=== PATIENT | female | born 1990 | race Caucasian/White ===

== ENCOUNTER 2019-05-25 18:20 | Emergency (ER) | payer OTHER ==
[~2019-05-25] VITALS: Ht 165.1 cm; Wt 88.6 kg
[~2019-05-25 18:20] MED LIST: ALBU8HFA4 IH; METF-960 PO; OMEP10 PO; RISP2 PO
[2019-05-25 20:00] LABS: BASOPHILS % (AUTO) 0.4 % (0.0-2.0); EOSINOPHILS % (AUTO) 0.2 % (1.0-6.0); HEMATOCRIT 43.6 % (36-46); HEMOGLOBIN 15.2 g/dL (12.0-16.0); LYMPHOCYTES # (AUTO) 1.9 K/uL (1.0-4.8); LYMPHOCYTES % (AUTO) 20.6 % (22.0-44.0); MEAN CORPUSCULAR HEMOGLOBIN 30.2 pg (26.0-34.0); MEAN CORPUSCULAR HGB CONC 34.8 G/dL (31.0-37.0); MEAN CORPUSCULAR VOLUME 87 fL (80-100); MONOCYTES # (AUTO) 0.6 K/uL (0.1-1.0); MONOCYTES % (AUTO) 6.3 % (2.0-9.0); NEUTROPHILS # (AUTO) 6.6 K/uL (1.8-7.7); NEUTROPHILS % (AUTO) 72.5 % (40.0-70.0); PLATELET COUNT (AUTO) 331 K/uL (150-450); RED BLOOD CELL COUNT(AUTO) 5.03 MIL/uL (4.00-5.20); RED CELL DISTRIBUTION WIDTH 12.7 % (11.5-14.5)
[2019-05-25 20:12] LABS: ANION GAP 9 mmol/L (8-16); CALCIUM, TOTAL 9.5 mg/dL (8.8-10.5); CARBON DIOXIDE 29 mmol/L (22-29); CHLORIDE 101 mmol/L (98-107); CREATININE 0.82 mg/dL (0.60-1.30); GLOMERULAR FILTR. RATE CALC > 60 mL/min (>60); GLUCOSE,RANDOM 159 mg/dL (70-110); POTASSIUM 3.7 mmol/L (3.5-5.1); SODIUM SERUM 139 mmol/L (136-145); UREA NITROGEN, BLOOD 9 mg/dL (7-18)
[2019-05-25] MEDS ORDERED: ONDANSETRON HCL 4 MG TABLET PO ONE (20:15)
[2019-05-25] MEDS ORDERED: MECLIZINE HCL 25 MG TABLET PO ONE (20:15)
[2019-05-25 20:20] VITALS: BP 130/82
[2019-05-25 20:27] LABS: ALANINE AMINOTRANSFERASE 64 U/L (12-78); ALBUMIN 3.9 g/dL (3.4-5.0); ALKALINE PHOSPHATASE 73 U/L (46-116); ASPARTATE AMINOTRANSFERASE 28 U/L (15-37); BILIRUBIN,TOTAL 0.7 mg/dL (0.1-1.0); HCG,QUANTITATIVE < 1 mIU/mL (0-6); TOTAL PROTEIN, SERUM 8.2 g/dL (6.4-8.2)
== END 2019-05-25 21:39 | disposition home or self-care (01) ==
LOC: EMS 18:20
DX: F20.9 Schizophrenia, unspecified (principal); H81.13 Benign paroxysmal vertigo, bilateral; E11.9 Type 2 diabetes mellitus without complications; I10 Essential (primary) hypertension; J45.909 Unspecified asthma, uncomplicated; F11.90 Opioid use, unspecified, uncomplicated; F31.9 Bipolar disorder, unspecified; F90.9 Attention-deficit hyperactivity disorder, unspecified type; Z79.899 Other long term (current) drug therapy; Z79.84 Long term (current) use of oral hypoglycemic drugs; Z91.040 Latex allergy status; Z88.8 Allergy status to other drugs, medicaments and biological substances; Z91.013 Allergy to seafood
CPT/HCPCS: 36415; 80053; 84702; 85025; 99284; G0480; Q0162

== ENCOUNTER 2021-03-17 06:47 | Emergency (ER) | payer MEDICAID, OTHER ==
[~2021-03-17] VITALS: Ht 152.4 cm; Wt 104.0 kg
[~2021-03-17 06:47] MED LIST changes: +METF-1211 PO; -METF-960 PO; -RISP2 PO; +RISP2TAB45 PO
[2021-03-17] MEDS ORDERED: HYDR50CA9 PO (07:49)
[2021-03-17] MEDS ORDERED: LEVO25TA9 PO (07:49)
[2021-03-17 08:11] LABS: BASOPHILS % (AUTO) 0.4 % (0.0-2.0); EOSINOPHILS % (AUTO) 1.3 % (1.0-6.0); HEMATOCRIT 39.9 % (36-46); HEMOGLOBIN 13.9 g/dL (12.0-16.0); LYMPHOCYTES # (AUTO) 2.4 K/uL (1.0-4.8); LYMPHOCYTES % (AUTO) 44.9 % (22.0-44.0); MEAN CORPUSCULAR HEMOGLOBIN 29.9 pg (26.0-34.0); MEAN CORPUSCULAR HGB CONC 34.9 G/dL (31.0-37.0); MEAN CORPUSCULAR VOLUME 86 fL (80-100); MONOCYTES # (AUTO) 0.4 K/uL (0.1-1.0); MONOCYTES % (AUTO) 8.3 % (2.0-9.0); NEUTROPHILS # (AUTO) 2.4 K/uL (1.8-7.7); NEUTROPHILS % (AUTO) 45.1 % (40.0-70.0); PLATELET COUNT (AUTO) 314 K/uL (150-450); RED BLOOD CELL COUNT(AUTO) 4.66 MIL/uL (4.00-5.20); RED CELL DISTRIBUTION WIDTH 13.1 % (11.5-14.5)
[2021-03-17 08:20] LABS: ANION GAP 6 mmol/L (8-16); CALCIUM, TOTAL 9.2 mg/dL (8.8-10.5); CARBON DIOXIDE 31 mmol/L (22-29); CHLORIDE 105 mmol/L (98-107); CREATININE 0.82 mg/dL (0.60-1.30); GLOMERULAR FILTR. RATE CALC > 60 mL/min (>60); GLUCOSE,RANDOM 153 mg/dL (70-110); POTASSIUM 4.6 mmol/L (3.5-5.1); SODIUM SERUM 142 mmol/L (136-145); UREA NITROGEN, BLOOD 14 mg/dL (7-18)
[2021-03-17 08:45] VITALS: BP 148/89
[2021-03-17 09:18] LABS: GLUCOMETER DEV NAME(LOC) ERT.5; GLUCOSE,POINT OF CARE 140 MG/DL (70-110)
== END 2021-03-17 10:31 | disposition home or self-care (01) ==
LOC: EMS 06:53
DX: G62.9 Polyneuropathy, unspecified (principal); R20.0 Anesthesia of skin; J45.909 Unspecified asthma, uncomplicated; F31.9 Bipolar disorder, unspecified; E11.9 Type 2 diabetes mellitus without complications; I10 Essential (primary) hypertension; F20.9 Schizophrenia, unspecified; F11.90 Opioid use, unspecified, uncomplicated; Z91.040 Latex allergy status; Z91.013 Allergy to seafood; Z91.018 Allergy to other foods; Z79.84 Long term (current) use of oral hypoglycemic drugs
CPT/HCPCS: 70450; 80048; 82962; 83735; 85025; 99284

== ENCOUNTER 2021-04-01 08:37 | Inpatient (IN) | payer MEDICAID ==
[~2021-04-01] VITALS: Ht 165.1 cm; Wt 113.6 kg
[~2021-04-01 08:37] MED LIST changes: +HYDR50CA9 PO; +LEVO25TA9 PO
[2021-04-01 09:21] LABS: BASOPHILS % (AUTO) 0.9 % (0.0-2.0); EOSINOPHILS % (AUTO) 0.2 % (1.0-6.0); HEMATOCRIT 37.8 % (36-46); HEMOGLOBIN 13.3 g/dL (12.0-16.0); LYMPHOCYTES # (AUTO) 1.9 K/uL (1.0-4.8); LYMPHOCYTES % (AUTO) 21.4 % (22.0-44.0); MEAN CORPUSCULAR HEMOGLOBIN 29.9 pg (26.0-34.0); MEAN CORPUSCULAR HGB CONC 35.2 G/dL (31.0-37.0); MEAN CORPUSCULAR VOLUME 85 fL (80-100); MONOCYTES # (AUTO) 0.8 K/uL (0.1-1.0); MONOCYTES % (AUTO) 8.5 % (2.0-9.0); NEUTROPHILS # (AUTO) 6.1 K/uL (1.8-7.7); PLATELET COUNT (AUTO) 415 K/uL (150-450); RED BLOOD CELL COUNT(AUTO) 4.45 MIL/uL (4.00-5.20); RED CELL DISTRIBUTION WIDTH 12.6 % (11.5-14.5)
[2021-04-01 09:30] LABS: ANION GAP 8 mmol/L (8-16); CALCIUM, TOTAL 9.5 mg/dL (8.8-10.5); CARBON DIOXIDE 31 mmol/L (22-29); CHLORIDE 103 mmol/L (98-107); CREATININE 0.84 mg/dL (0.60-1.30); GLOMERULAR FILTR. RATE CALC > 60 mL/min (>60); GLUCOSE,RANDOM 133 mg/dL (70-110); POTASSIUM 3.5 mmol/L (3.5-5.1); SODIUM SERUM 142 mmol/L (136-145); UREA NITROGEN, BLOOD 12 mg/dL (7-18)
[2021-04-01 09:36] LABS: ALANINE AMINOTRANSFERASE 42 U/L (12-78); ALBUMIN 4.1 g/dL (3.4-5.0); ALKALINE PHOSPHATASE 73 U/L (46-116); ASPARTATE AMINOTRANSFERASE 21 U/L (15-37); BILIRUBIN,TOTAL 0.7 mg/dL (0.1-1.0); TOTAL PROTEIN, SERUM 8.3 g/dL (6.4-8.2)
[2021-04-01 10:28] LABS: SALICYLATE 0.5 mg/dL (2.8-20.0)
[2021-04-01 10:33] LABS: ACETAMINOPHEN < 2 mcg/mL (10-30)
[2021-04-01] MEDS ORDERED: OLANZapine 5 MG RAPDIS TABLET PO PRN (11:30)
[2021-04-01] MEDS ORDERED: GuaiFENesin/D-METHORPHAN [SUGAR-FREE] 200-20MG/10 ML SYRUP UDCUP PO PRN (11:30)
[2021-04-01] MEDS ORDERED: TUBERCULIN, PURIFIED PROTEIN DERIVATIVE 5 TU/0.1 ML SYRINGE ID ONE (11:30)
[2021-04-01] MEDS ORDERED: PROMETHAZINE HCL 25 MG TABLET PO PRN (11:30)
[2021-04-01] MEDS ORDERED: MAG HYDROX/AL HYDROX/SIMETH ES 30 ML SUSPENSION UDCUP PO PRN (11:30)
[2021-04-01] MEDS ORDERED: LOPERAMIDE HCL 2 MG CAPSULE PO PRN (11:30)
[2021-04-01] MEDS ORDERED: MAGNESIUM HYDROXIDE SUSPENSION 30 ML UDCUP PO PRN (11:30)
[2021-04-01 12:00] LABS: HCG,QUANTITATIVE < 1 mIU/mL (0-6)
[2021-04-01] MEDS ORDERED: DiphenhydrAMINE HCL 50 MG/ML VIAL IM ONE (16:00)
[2021-04-01] MEDS ORDERED: HALOPERIDOL LACTATE 5 MG/ML VIAL IM ONE (16:00)
[2021-04-01] MEDS ORDERED: LORazepam 2 MG/ML VIAL IM ONE (16:00)
[2021-04-01 16:17] LABS: COVID AG,FIA SOURCE NASOPHARYNGEAL
[2021-04-01] MEDS: THIAMINE 100 MG TABLET PO SCH (18:08)
[2021-04-01] MEDS ORDERED: ALBUTEROL SULFATE HFA 90 MCG/PUFF 8 GM INHALER IH PRN ×2 (18:15→20:30)
[2021-04-01 18:42] VITALS: BP 138/92
[2021-04-01] MEDS ORDERED: INFLUENZA VIRUS VACCINE QVS 2021-22 (6MO+)/PF 60 MCG/0.5 ML SYRINGE IM. ONE (19:00)
[2021-04-01] MEDS ORDERED: INSULIN LISPRO 100 UNITS/ML SQ PRN (20:30)
[2021-04-01] MEDS ORDERED: GLUCAGON,HUMAN RECOMBINANT 1 MG VIAL IM PRN (20:30)
[2021-04-01] MEDS ORDERED: DEXTROSE 50%-WATER 25 GM/50 ML SYRINGE IVP PRN (20:30)
[2021-04-01] MEDS ORDERED: OLANZapine 5 MG RAPDIS TABLET PO SCH (21:00)
[2021-04-01] MEDS ORDERED: DIVALPROEX SODIUM 500 MG ER TABLET PO SCH (21:00)
[2021-04-01] MEDS ORDERED: MELATONIN 5 MG TABLET PO SCH (21:00)
[2021-04-01] MEDS ORDERED: OMEPRAZOLE 10 MG CAPSULE PO SCH (21:00)
[2021-04-01 23:30] VITALS: BP 141/85
[2021-04-01] MEDS: ZOLPIDEM TARTRATE 10 MG TABLET PO PRN (23:43)
[2021-04-01] MEDS: ACETAMINOPHEN 325 MG TABLET PO PRN (23:44)
[2021-04-02] MEDS: LORazepam 2 MG TABLET PO PRN ×2 (05:23→17:49)
[2021-04-02] MEDS: ACETAMINOPHEN 325 MG TABLET PO PRN (05:26)
[2021-04-02] MEDS: LEVOTHYROXINE SODIUM 25 MCG TABLET PO SCH (06:13)
[2021-04-02] MEDS: MetFORMIN HCL 500 MG TABLET PO SCH ×2 (06:13→06:24)
[2021-04-02] MEDS: INSULIN LISPRO 100 UNITS/ML SQ PRN ×2 (06:23→06:26)
[2021-04-02 06:26] LABS: GLUCOMETER DEV NAME(LOC) 3E.C; GLUCOSE,POINT OF CARE 129 MG/DL (70-110)
[2021-04-02] MEDS ORDERED: LEVOTHYROXINE SODIUM 25 MCG TABLET PO SCH (07:00)
[2021-04-02 07:01] LABS: HEMOGLOBIN A1C 6.3 % (3.8-5.6)
[2021-04-02 07:16] LABS: CHOL/HDL RATIO 5.4 (3.9-5.7); FREE T4 (FREE THYROXINE) 1.36 ng/dL (0.76-1.46); THYROID STIMULATING HORMONE 4.4 uIU/mL (0.36-3.74)
[2021-04-02] MEDS ORDERED: MetFORMIN HCL 500 MG TABLET PO ONE (08:00)
[2021-04-02] MEDS: OMEPRAZOLE 10 MG CAPSULE PO SCH ×2 (08:13→17:48)
[2021-04-02] MEDS: FOLIC ACID 1 MG TABLET PO SCH (08:15)
[2021-04-02] MEDS: MULTIVITAMINS WITH MINERALS, THERAPEUTIC TABLET PO SCH (08:15)
[2021-04-02] MEDS: HydrOXYzine PAMOATE 50 MG CAPSULE PO PRN ×2 (08:15→20:31)
[2021-04-02] MEDS: THIAMINE 100 MG TABLET PO SCH ×2 (08:15→17:48)
[2021-04-02] MEDS ORDERED: NALTREXONE HCL 50 MG TABLET PO SCH (09:00)
[2021-04-02] MEDS: HYDROCODONE/ACETAMINOPHEN 5-325 MG TABLET PO PRN ×2 (11:00→20:32)
[2021-04-02 16:51] LABS: GLUCOMETER DEV NAME(LOC) 3E.C; GLUCOSE,POINT OF CARE 140 MG/DL (70-110)
[2021-04-02] MEDS ORDERED: HydrOXYzine PAMOATE 50 MG CAPSULE PO PRN (19:45)
[2021-04-02] MEDS ORDERED: LURASIDONE HCL 20 MG TABLET PO PRN (19:45)
[2021-04-02] MEDS ORDERED: MELATONIN 5 MG TABLET PO SCH (21:00)
[2021-04-02] MEDS: ZOLPIDEM TARTRATE 10 MG TABLET PO PRN (23:50)
[2021-04-02 23:56] VITALS: BP 113/66
[2021-04-03] MEDS: LEVOTHYROXINE SODIUM 25 MCG TABLET PO SCH (06:49)
[2021-04-03] MEDS: MetFORMIN HCL 500 MG TABLET PO SCH (06:50)
[2021-04-03 06:51] LABS: GLUCOMETER DEV NAME(LOC) 3E.C; GLUCOSE,POINT OF CARE 154 MG/DL (70-110)
[2021-04-03] MEDS: INSULIN LISPRO 100 UNITS/ML SQ PRN (06:52)
[2021-04-03] MEDS ORDERED: LURASIDONE HCL 40 MG TABLET PO SCH (07:30)
[2021-04-03] MEDS: OMEPRAZOLE 10 MG CAPSULE PO SCH (08:48)
[2021-04-03] MEDS: FOLIC ACID 1 MG TABLET PO SCH (08:52)
[2021-04-03] MEDS: HydrOXYzine PAMOATE 50 MG CAPSULE PO PRN (08:52)
[2021-04-03] MEDS: HYDROCODONE/ACETAMINOPHEN 5-325 MG TABLET PO PRN (08:53)
[2021-04-03] MEDS: THIAMINE 100 MG TABLET PO SCH (08:53)
[2021-04-03] MEDS: MULTIVITAMINS WITH MINERALS, THERAPEUTIC TABLET PO SCH (08:53)
[2021-04-03] MEDS ORDERED: HYD50 PO (09:29)
[2021-04-03] MEDS ORDERED: LURA40TA2 PO (09:29)
[2021-04-03] MEDS ORDERED: MELA5TAB40 PO (09:29)
[2021-04-03] MEDS ORDERED: ALBU8HFA IH (11:34)
[2021-04-03] MEDS ORDERED: PANT-31 PO (11:34)
[2021-04-03] MEDS ORDERED: OMEP10 PO (11:54)
[2021-04-03] MEDS ORDERED: METF-1211 PO (11:54)
[2021-04-04] MEDS ORDERED: MetFORMIN HCL 500 MG TABLET PO SCH (07:30)
== END 2021-04-03 12:15 | disposition home or self-care (01) | DRG 750 ==
LOC: EMS 08:42 → 3EC 17:47
PROVIDERS: ADMIT Psychiatry & Neurology Psychiatry; ATTEND Psychiatry & Neurology Psychiatry
DX: F25.0 Schizoaffective disorder, bipolar type (principal); G40.409 Other generalized epilepsy and epileptic syndromes, not intractable, without status epilepticus; E11.9 Type 2 diabetes mellitus without complications; E03.9 Hypothyroidism, unspecified; Z20.822 Contact with and (suspected) exposure to COVID-19; F11.90 Opioid use, unspecified, uncomplicated; H91.91 Unspecified hearing loss, right ear; I10 Essential (primary) hypertension; J44.9 Chronic obstructive pulmonary disease, unspecified; K21.9 Gastro-esophageal reflux disease without esophagitis; M48.02 Spinal stenosis, cervical region; Z55.9 Problems related to education and literacy, unspecified; Z59.9 Problem related to housing and economic circumstances, unspecified; Z63.9 Problem related to primary support group, unspecified; Z65.3 Problems related to other legal circumstances; Z88.8 Allergy status to other drugs, medicaments and biological substances; Z91.040 Latex allergy status; Z91.19 Patient's noncompliance with other medical treatment and regimen
CPT/HCPCS: 80053; 80061; 82962; 83036; 84439; 84443; 84702; 85025; 86592; 87081; 99285; G0480; G0481; J1200; J1630; J2060; Q9967

== ENCOUNTER 2022-11-04 16:11 | Emergency (ER) | payer MEDICARE, OTHER ==
[~2022-11-04] VITALS: Ht 162.6 cm; Wt 118.2 kg
[~2022-11-04 16:11] MED LIST changes: -ALBU8HFA4 IH; +HYDR-4584 PO; -HYDR50CA9 PO; +LURA40TA2 PO; +MELA5TAB40 PO; -RISP2TAB45 PO
[2022-11-04] MEDS ORDERED: HydrOXYzine HCL 50 MG TABLET PO ONE (18:15)
[2022-11-04] MEDS ORDERED: ALBU18HF12 PO (18:18)
[2022-11-04] MEDS ORDERED: HYDR50CA6 PO (18:18)
[2022-11-04] MEDS ORDERED: FLUT1BLS9 IH (18:18)
[2022-11-04] MEDS ORDERED: GABA-1181 PO (18:18)
[2022-11-04] MEDS ORDERED: LEVE10006 PO (18:18)
[2022-11-04 18:19] LABS: EOSINOPHILS % (AUTO) 0.6 % (1.0-6.0); HEMATOCRIT 40.3 % (36-46); HEMOGLOBIN 13.7 g/dL (12.0-16.0); LYMPHOCYTES # (AUTO) 2.5 K/uL (1.0-4.8); LYMPHOCYTES % (AUTO) 38.9 % (22.0-44.0); MEAN CORPUSCULAR HEMOGLOBIN 29.7 pg (26.0-34.0); MEAN CORPUSCULAR VOLUME 87 fL (80-100); MONOCYTES # (AUTO) 0.4 K/uL (0.1-1.0); MONOCYTES % (AUTO) 5.9 % (2.0-9.0); NEUTROPHILS # (AUTO) 3.4 K/uL (1.8-7.7); NEUTROPHILS % (AUTO) 53.6 % (40.0-70.0); PLATELET COUNT (AUTO) 323 K/uL (150-450); RED BLOOD CELL COUNT(AUTO) 4.61 MIL/uL (4.00-5.20); RED CELL DISTRIBUTION WIDTH 13.1 % (11.5-14.5)
[2022-11-04 18:43] VITALS: TEMP 98
[2022-11-04 18:45] VITALS: BP 123/83; PULSE 99; RESP 17
[2022-11-04 18:47] LABS: ANION GAP 7 mmol/L (8-16); CALCIUM, TOTAL 9.1 mg/dL (8.8-10.5); CARBON DIOXIDE 30 mmol/L (22-29); CHLORIDE 100 mmol/L (98-107); CREATININE 1.04 mg/dL (0.60-1.30); GLOMERULAR FILTR. RATE CALC > 60 mL/min (>60); GLUCOSE,RANDOM 179 mg/dL (70-110); POTASSIUM 3.9 mmol/L (3.5-5.1); SODIUM SERUM 137 mmol/L (136-145)
[2022-11-04 18:53] LABS: ALANINE AMINOTRANSFERASE 60 U/L (12-78); ALKALINE PHOSPHATASE 76 U/L (46-116); ASPARTATE AMINOTRANSFERASE 32 U/L (15-37); BILIRUBIN,TOTAL 0.5 mg/dL (0.1-1.0); TOTAL PROTEIN, SERUM 7.8 g/dL (6.4-8.2)
== END 2022-11-04 20:47 | disposition home or self-care (01) ==
LOC: EMS 16:21
DX: F20.9 Schizophrenia, unspecified (principal); J45.909 Unspecified asthma, uncomplicated; F31.9 Bipolar disorder, unspecified; I10 Essential (primary) hypertension; F90.9 Attention-deficit hyperactivity disorder, unspecified type; F17.210 Nicotine dependence, cigarettes, uncomplicated; E11.9 Type 2 diabetes mellitus without complications
CPT/HCPCS: 99284; 80053; 85025; 36415; G0480

== ENCOUNTER 2023-11-17 13:15 | Outpatient (CLI) | payer MEDICARE, OTHER ==
[~2023-11-17 13:15] MED LIST changes: +ALBU18HF12 PO; +FLUT1BLS9 IH; +GABA-1181 PO; -HYDR-4584 PO; +HYDR50CA6 PO; +LEVE10006 PO; -OMEP10 PO; +OMEP10CA38 PO
[2023-11-17] MEDS: HydrOXYzine PAMOATE 50 MG CAPSULE PO ONE (19:03)
== END 2023-11-18 10:35 | disposition home or self-care (01) ==
LOC: CSU 13:15
PROVIDERS: ATTEND Psychiatry & Neurology Psychiatry
DX: F15.20 Other stimulant dependence, uncomplicated (principal); F25.9 Schizoaffective disorder, unspecified
CPT/HCPCS: 90839; 90840; Z7610